=== PATIENT | male | born 1995 | race Caucasian/White ===

== ENCOUNTER 2021-12-25 14:50 | Emergency (ER) | payer MEDICAID ==
[~2021-12-25] VITALS: Ht 175.3 cm; Wt 95.5 kg
[2021-12-25] MEDS ORDERED: AMOX-117 PO (17:53)
[2021-12-25] MEDS ORDERED: GUAI400T92 PO (17:53)
[2021-12-25 20:43] VITALS: BP 135/85
== END 2021-12-25 20:44 | disposition home or self-care (01) ==
LOC: ER 14:51
DX: U07.1 COVID-19 (principal); H66.93 Otitis media, unspecified, bilateral; J98.8 Other specified respiratory disorders; R06.02 Shortness of breath; R05.9 Cough, unspecified; R51.9 Headache, unspecified; R50.9 Fever, unspecified; Z79.2 Long term (current) use of antibiotics; Z79.899 Other long term (current) drug therapy
CPT/HCPCS: 71045; 87502; 87503; 87635; 99284; C9803

== ENCOUNTER 2023-11-30 08:46 | Emergency (ER) | payer MEDICAID, OTHER ==
[~2023-11-30] VITALS: Ht 175.3 cm; Wt 103.3 kg
[~2023-11-30 08:46] MED LIST: GUAI400T92 PO
[2023-11-30 08:49] VITALS: BP 147/83; PULSE 92; O2SAT 97
[2023-11-30] MEDS ORDERED: BACL10TA PO (10:58)
[2023-11-30 11:14] VITALS: RESP 17; TEMP 99
== END 2023-11-30 11:15 | disposition home or self-care (01) ==
LOC: ER 08:47
DX: M54.2 Cervicalgia (principal); M54.6 Pain in thoracic spine; Z79.899 Other long term (current) drug therapy
CPT/HCPCS: 99283